=== PATIENT | female | born 1970 | race Caucasian/White ===

== ENCOUNTER 2019-08-16 20:49 | Emergency (ER) | payer SELFPAY ==
[2019-08-16] MEDS ORDERED: Sodium Chloride 0.9% 2.5 ML Syringe FLUSH PRN (20:53)
[2019-08-16] MEDS ORDERED: Sodium Chloride 0.9% 10 ML Syringe FLUSH PRN (20:53)
[2019-08-16] MEDS ORDERED: Aspirin 325 MG Tab PO ONE (20:58)
--- NOTE | 2019-08-16 21:05 | EDM.PDOC ---
ED HPI GENERAL MEDICAL PROBLEM - General Chief Complaint: Chest Pain Stated Complaint: POSSIBLE HEART ATTACK Time Seen by Provider: 08/16/19 20:57 Source of Information: Reports: Patient History Limitations: Reports: No Limitations, Uncooperative (Verbally abusive, unwilling to answer some questions.) - History of Present Illness INITIAL COMMENTS - FREE TEXT/NARRATIVE: 49-year-old female with past medical history of coronary artery disease status post stenting, "hyperglycemia", traumatic subdural hematoma presenting with chest discomfort. She reports the onset of substernal chest discomfort about 10 minutes prior to arrival while trying to install a doorknob. Reports substernal chest discomfort radiating to the back, constant, nothing makes it better or worse, rated as 10 out of 10. Reports that pain is similar to her prior myocardial infarctions. Also complains of some mild shortness of breath, denies vomiting or diaphoresis. Took 4 sublingual nitroglycerin tablets prior to arrival with partial relief but did not take aspirin. No other complaints. Chest Pain Score (Numeric/FACES): 10 - Related Data Allergies Allergy/AdvReac Type Severity Reaction Status Date / Time No Known Allergies Allergy Verified 08/16/19 21:04 Home Meds: Home Meds . [No Known Home Meds] 08/16/19 [History] Past Medical History Cardiovascular History: Reports: Angina, CAD, [place], Stents Other Neuro History: Subdural hematoma Psychiatric History: Reports: Depression Social & Family History - Family History Family Medical History: Noncontributory - Tobacco Core Measures Tobacco Use/Smoking Within Last 30 Days: Yes Smoking Frequency Within Last 30 Days: Reports: Five or More Cigarettes Per Day Smokeless Tobacco Use in Last 30 Days: Yes ED ROS GENERAL - Review of Systems Review Of Systems: See Below Constitutional: Denies: Fever HEENT: Reports: No Symptoms Respiratory: Reports: Shortness of Breath. Denies: Cough Cardiovascular: Reports: Chest Pain. Denies: Edema Endocrine: Reports: No Symptoms GI/Abdominal: Denies: Abdominal Pain, Nausea, Vomiting : Reports: No Symptoms Musculoskeletal: Reports: Back Pain Skin: Reports: No Symptoms Neurological: Reports: No Symptoms Psychiatric: Reports: No Symptoms Hematologic/Lymphatic: Reports: No Symptoms Immunologic: Reports: No Symptoms ED EXAM, GENERAL - Physical Exam Exam: See Below Free Text/Narrative:: Vital signs reviewed. Nursing notes reviewed. Constitutional: Awake, alert, non-distressed. Unpleasant, verbally abusive. Head: Normocephalic, atraumatic. Eyes: EOMI, conjunctiva normal, no discharge, no scleral icterus. Ears, Nose, Throat: External ears and ears normal, moist oral mucosa. Cardiovascular: 2+ radial pulses bilaterally, capillary refill less than 2 seconds. RRR, no M/R/G Pulmonary: normal work of breathing, no accessory muscle use. CTA BL Abdomen/GI: Soft, nontender, nondistended, no guarding or rigidity, no masses. Musculoskeletal: No deformities. Integumentary: Appropriate color for ethnicity, warm, dry, no pallor or jaundice , no rash. Neurologic: Alert, answering questions appropriately, normal speech, no facial droop, moving all extremities well. Psychiatric: Irritable when interviewed, normal thought process. EKG INTERPRETATION EKG Date: 08/16/19 Time: 20:51 Rhythm: NSR Rate (Beats/Min): 90 [place]: Normal P-Wave: Present ST-T: Other (T wave inversions in aVL (new), no diagnostic ST segment depression or elevation) QT: Normal Comparison: Other: (Compared to ECG from 09/04/2018, new T wave inversions in aVL ) Course - Vital Signs Text/Narrative:: Patient hemodynamically stable, afebrile, well-appearing, looks nontoxic. Differential diagnosis includes but is not limited to: Acute coronary syndrome, STEMI, and STEMI, unstable angina, pulmonary embolism, aortic dissection, pneumothorax, pneumonia, pericarditis, Boerhaave syndrome, pleural effusion, atypical chest pain, anxiety state, and many others. Patient immediately roomed on arrival. Twelve-lead EKG was obtained, which was initially concerning for myocardial ischemia but did not meet STEMI criteria. Noted new T wave inversions in lead aVL. IV access was established and labs were sent. Patient was given full dose aspirin. 1 view chest x-ray appears clear. 2110: Twelve-lead EKG obtained, showing new T wave inversions in aVL compared to prior tracings. Administering full dose aspirin additional sublingual nitroglycerin. IV access established, labs pending. Chest x-ray ordered. Plan to repeat twelve-lead EKG serially. Labs reassuring, initial troponin negative. Given additional sublingual nitroglycerin and then started on nitroglycerin infusion. Obtained serial twelve-lead EKGs, patient developed an inferior STEMI on repeat ECG. STEMI alert was declared at 2133. Contacted [facility] in [place], [place] for assistance - no Hot Header Operator/PCI available at our hospital. Activated aeromedical transport. Given heparin bolus and then started on heparin infusion. Patient is not a candidate for systemic thrombolytics due to a prior history of a traumatic subdural hemorrhage. Deferred dual antiplatelet therapy to accepting facility, this was discussed with the accepting ED physician (Dr. Temo Bolton) and the flight crew. Report given to aeromedical crew. Transferred in good condition. Last Recorded V/S: Last Vital Signs Temp 36.1 C 08/16/19 21:56 Pulse 88 08/16/19 21:56 Resp 24 H 08/16/19 21:56 BP 151/87 H 08/16/19 21:56 Pulse Ox 99 08/16/19 21:56 - Orders/Labs/Meds Orders: Active Orders 24 hr Category Date Time Status Cardiac Monitoring [RC] . DIRECTED Care 08/16/19 20:57 Active EKG Documentation Completion [RC] STAT Care 08/16/19 20:53 Active Pulse Oximetry [RC] ASDIRECTED Care 08/16/19 20:57 Active Heparin Sod,Pork In 0.45% Nacl [Heparin-1/2Ns 25,000 Med 08/16/19 21:45 Active Units/500] 25,000 unit in 500 ml IV TITRATE Nitroglycerin/D5W [Nitroglycerin 25 MG/D5W 250 ML] Med 08/16/19 21:30 Active 25 mg in 250 ml IV TITRATE Sodium Chloride 0.9% [Saline Flush] Med 08/16/19 20:53 Active 10 ml FLUSH ASDIRECTED PRN Sodium Chloride 0.9% [Saline Flush] Med 08/16/19 20:53 Active 2.5 ml FLUSH ASDIRECTED PRN Saline Lock Insert [OM.PC] Stat Oth 08/16/19 20:53 Ordered Medication Orders Nitroglycerin/Dextrose (Nitroglycerin 25 Mg/D5w 250 Ml) 25 mg in 250 mls @ 30 mls/hr IV TITRATE ERIC; Protocol Last Titration: 08/16/19 21:49 Dose: 125 mcg/min, 75 mls/hr Titration: 08/16/19 21:41 Dose: 75 mcg/min, 45 mls/hr Admin: 08/16/19 21:27 Dose: 50 mcg/min, 30 mls/hr Heparin Sodium/Sodium Chloride (Heparin-1/2ns 25,000 Units/500) 25,000 unit in 500 mls @ 16.329 mls/hr IV TITRATE ERIC; Protocol Last Admin: 08/16/19 21:43 Dose: 12 units/kg/hr, 16.329 mls/hr Sodium Chloride (Saline Flush) 10 ml FLUSH ASDIRECTED PRN PRN Reason: Keep Vein Open Sodium Chloride (Saline Flush) 2.5 ml FLUSH ASDIRECTED PRN PRN Reason: Keep Vein Open Labs: Laboratory Tests 08/16/19 08/16/19 08/16/19 Range/Units 20:55 20:55 20:55 WBC 7.66 (4.0-11.0) K/uL RBC 4.95 (4.30-5.90) M/uL Hgb 13.8 (12.0-16.0) g/dL Hct 42.5 (36.0-46.0) % MCV 85.9 (80.0-98.0) fL MCH 27.9 (27.0-32.0) pg MCHC 32.5 (31.0-37.0) g/dL RDW Std Deviation 42.5 (28.0-62.0) fl RDW Coeff of Gerald 14 (11.0-15.0) % Plt Count 324 (150-400) K/uL MPV 10.00 (7.40-12.00) fL Neut % (Auto) 54.9 (48.0-80.0) % Lymph % (Auto) 32.2 (16.0-40.0) % [place] % (Auto) 12.0 (0.0-15.0) % Eos % (Auto) 0.4 (0.0-7.0) % Baso % (Auto) 0.5 (0.0-1.5) % Neut # (Auto) 4.2 (1.4-5.7) K/uL Lymph # (Auto) 2.5 H (0.6-2.4) K/uL [place] # (Auto) 0.9 H (0.0-0.8) K/uL Eos # (Auto) 0.0 (0.0-0.7) K/uL Baso # (Auto) 0.0 (0.0-0.1) K/uL Nucleated RBC % 0.0 /100WBC Nucleated RBCs # 0 K/uL INR 0.97 APTT 28.9 (18.6-31.3) SEC Sodium 142 (136-145) mmol/L Potassium 3.5 (3.5-5.1) mmol/L Chloride 105 (98-107) mmol/L Carbon Dioxide 28.1 (21.0-32.0) mmol/L BUN 11 (7.0-18.0) mg/dL Creatinine 0.9 (0.6-1.0) mg/dL Est Cr Clr Drug Dosing 70.01 mL/min Estimated GFR (MDRD) > 60.0 ml/min Glucose 100 (74-106) mg/dL Calcium 9.0 (8.5-10.1) mg/dL Total Bilirubin 0.4 (0.2-1.0) mg/dL AST 17 (15-37) IU/L ALT 24 (14-63) IU/L Alkaline Phosphatase 110 (46-116) U/L Troponin I < 0.050 (0.000-0.056) ng/mL Total Protein 7.1 (6.4-8.2) g/dL Albumin 3.8 (3.4-5.0) g/dL Globulin 3.3 (2.6-4.0) g/dL Albumin/Globulin Ratio 1.2 (0.9-1.6) Meds: Medications Generic Name Dose Route Start Last Admin Trade Name Freq PRN Reason Stop Dose Admin Nitroglycerin/Dextrose 25 mg in 250 mls @ 30 mls/hr 08/16/19 21:30 08/16/19 21:49 Nitroglycerin 25 Mg/D5w 250 Ml IV 125 mcg/min TITRATE ERIC 75 mls/hr Titration Protocol 50 MCG/MIN Heparin Sodium/Sodium Chloride 25,000 unit in 500 mls @ 16.329 mls/hr 21:45 08/16/19 21:43 Heparin-1/2ns 25,000 Units/500 IV 12 units/kg/hr TITRATE ERIC 16.329 mls/hr Administration Protocol 12 UNITS/KG/HR Sodium Chloride 10 ml 08/16/19 20:53 Saline Flush FLUSH ASDIRECTED PRN Keep Vein Open Sodium Chloride 2.5 ml 08/16/19 20:53 Saline Flush FLUSH ASDIRECTED PRN Keep Vein Open Discontinued Medications Generic Name Dose Route Start Last Admin Trade Name Freq PRN Reason Stop Dose Admin Aspirin 325 mg 08/16/19 20:58 08/16/19 21:06 Aspirin PO 08/16/19 20:59 325 mg ONETIME ONE Administration Fentanyl Confirm 08/16/19 22:01 08/16/19 22:14 Fentanyl Administered 08/16/19 22:02 50 mcg Dose Administration 50 mcg .ROUTE .STK-MED ONE Heparin Sodium (Porcine) 4,000 units 08/16/19 21:36 08/16/19 21:42 Heparin Sodium IVPUSH 08/16/19 21:37 4,000 units .BOLUS ONE Administration Nitroglycerin 0.4 mg 08/16/19 20:58 08/16/19 21:19 Nitrostat SL 0.4 mg Q5M PRN Administration Chest Pain Departure - Departure Time of Disposition: 21:59 Disposition: DC/Tfer to [facility] Reason for Transfer *Q: Primary PCI Indicated Condition: Good Clinical Impression: STEMI (ST elevation myocardial infarction) Qualifiers: Involved coronary artery: unspecified coronary artery Qualified Code(s): I21.3 - ST elevation (STEMI) myocardial infarction of unspecified site Referrals: PCP,None [Primary Care Provider] - Forms: ED Department Discharge Critical Care Note - Critical Care Note Total Time (mins): 60 Comments: Critical care time is exclusive of billable procedures and the time to perform these procedures. Critical care time was used to prevent vital system organ failure and deterioration. Critical care time includes bedside management and high-complexity decision making requiring my highest level of mental preparedness and attention. This includes reviewing the patient's chart and prior medical records, ordering and reviewing interpreting laboratory studies and imaging results, interpretation of vital signs and EKG, pulse oximetry, and discussion with the admitting team along with EMS and nursing staff. ST segment elevation myocardial infarction on ECG. Required coordination with nursing staff, flight crew, accepting hospital physician. IV nitroglycerin infusion, IV heparin bolus and infusion. Serial twelve-lead EKGs, serial monitoring of hemodynamics and blood pressure control. Discussion of case with patient and family. Aeromedical transport to ED and then to Hot [employer] Operator. Sepsis Event Note - Evaluation Sepsis Screening Result: No Definite Risk - Focused Exam Vital Signs: Vital Signs Temp Pulse Resp BP BP Pulse Ox 08/16/19 21:56 36.1 C 88 24 H 151/87 H 99 08/16/19 21:50 36.1 C 85 20 145/87 H 99 08/16/19 21:36 90 22 H 161/98 H 99 08/16/19 21:29 82 146/91 H 99 08/16/19 21:19 86 18 135/78 135/78 99 08/16/19 21:14 91 145/91 H 98 08/16/19 21:13 145/91 H 08/16/19 21:08 91 22 H 150/91 H 99 08/16/19 21:07 150/91 H 08/16/19 20:58 36.1 C 90 22 H 163/81 H 97 Date Exam was Performed: 08/16/19 Time Exam was Performed: 22:45 - My Orders Last 24 Hours: My Active Orders 08/16/19 20:57 Cardiac Monitoring [RC] . DIRECTED Pulse Oximetry [RC] ASDIRECTED 08/16/19 21:30 Nitroglycerin/D5W [Nitroglycerin 25 MG/D5W 250 ML] 25 mg in 250 ml IV TITRATE 08/16/19 21:45 Heparin Sod,Pork In 0.45% Nacl [Heparin-1/2Ns 25,000 Units/500] 25,000 unit in 500 ml IV TITRATE - Assessment/Plan Last 24 Hours: My Active Orders 08/16/19 20:57 Cardiac Monitoring [RC] . DIRECTED Pulse Oximetry [RC] ASDIRECTED 08/16/19 21:30 Nitroglycerin/D5W [Nitroglycerin 25 MG/D5W 250 ML] 25 mg in 250 ml IV TITRATE 08/16/19 21:45 Heparin Sod,Pork In 0.45% Nacl [Heparin-1/2Ns 25,000 Units/500] 25,000 unit in 500 ml IV TITRATE
[2019-08-16] MEDS: Nitroglycerin 0.4 MG Tab.SL SL PRN ×3 (21:07→21:19)
[2019-08-16 21:21] LABS: BLOOD UREA NITROGEN,BUN 11 mg/dL (7.0-18.0); CARBON DIOXIDE,CO2 28.1 mmol/L (21.0-32.0); CHLORIDE,CL 105 mmol/L (98-107); GLUCOSE RANDOM 100 mg/dL (74-106); POTASSIUM,K 3.5 mmol/L (3.5-5.1); SODIUM,NA 142 mmol/L (136-145)
[2019-08-16] MEDS ORDERED: Nitroglycerin/D5W 25 MG/250 ML BOTTLE IV SCH (21:30)
[2019-08-16] MEDS ORDERED: Heparin Sodium 5,000 Units/ML Vial IVPUSH ONE (21:36)
--- NOTE | 2019-08-16 21:37 | CR ---
Indication: Chest pain. Technique: AP portable view of the chest. Comparison: None Findings: The heart is normal in size. The lungs are clear. No infiltrate, pleural effusion, or pneumothorax is identified. Impression: No acute cardiopulmonary process Dictated by Krystal Kaminski MD @ Aug 16 2019 9:35PM Signed by Dr. Krystal Kaminski @ Aug 16 2019 9:36PM
[2019-08-16] MEDS ORDERED: Heparin Sod,Pork In 0.45% Nacl 25,000 UNIT/500 ML IV.SOLN IV SCH (21:45)
[2019-08-16] MEDS ORDERED: fentaNYL 50 MCG/ML SDV ONE (22:01)
== END 2019-08-16 22:20 ==
LOC: MW.ED 20:49
DX: I21.3 ST elevation (STEMI) myocardial infarction of unspecified site (principal); I25.10 Atherosclerotic heart disease of native coronary artery without angina pectoris; Z95.1 Presence of aortocoronary bypass graft; I25.2 Old myocardial infarction
CPT/HCPCS: 36415; 71045; 80053; 84484; 85025; 85610; 85730; 93005; 96365; 96368; 99291; A9270; J1644; J3010; J3490; 99285